=== PATIENT | female | born 1940 | race Caucasian/White ===

== ENCOUNTER 2021-08-29 16:07 | Emergency (ER) | payer MEDICARE, SELFPAY ==
--- NOTE | ~2021-08-29 | XR_ITS ---
XR hip RT min 2V 08/29/2021 16:42 Indication: Right hip pain after fall Procedure: 2 views right hip Comparison: No prior studies for comparison. Findings: There is a displaced right femoral neck fracture with superior subluxation. Normal minerali zation. No significant soft tissue abnormality. Impression: 1: Displaced right femoral neck fracture. Reviewed, dictated and finalized at location B. COMMUNICATOR Impression: 1: Displaced right femoral neck fracture.
[2021-08-29 16:15] VITALS: BP 100/45; PULSE 76; RESP 16; TEMP 36; O2SAT 100
--- NOTE | 2021-08-29 16:34 | ED.LOWEXIN ---
HPI - Extremity Injury (Lower) General Chief Complaint: Extremity Injury, Lower Stated Complaint: fall Time Seen by Provider: 08/29/21 16:30 Source: patient, family and RN notes reviewed Mode of arrival: ambulatory Limitations: no limitations History of Present Illness HPI Narrative: 81 year old female accompanied by daughter and spouse with complaints of patient falling at home yesterday afternoon stated she got lightheaded prior to fall but no syncopal episode. Patient is unable to bear weight on her right leg and is having discomfort to hip and also to right thigh region.Patient required assistance from staff to get her out of car which and daughter had put her in at home to bring here for x-ray. They stated that they called her orthopedic doctor at [facility] and have an appointment on . does not know medications she takes and poor historian. Patient does have some dementia and is forgetful, she is unable to give history either. Daughter able to assist with some past info but she is unsure of medications too. went home and got list of patient's medications. Patient was found to be in saturated depends and had been incontinent of stool, hygiene care given to patient and placed in hospital gown when she arrived at facility.. complaint: hip injury Onset (ago): day(s) (1) Type of Injury: blunt Place: home Related Data Home Medications Medication Instructions Recorded Confirmed atenolol 08/29/21 estradiol VAGINAL 08/29/21 flecainide 08/29/21 Allergies Allergy/AdvReac Type Severity Reaction Status Date / Time Sulfa (Sulfonamide Allergy Unknown Verified 08/29/21 16:15 Antibiotics) Review of Systems Review of Systems: CONSTITUTIONAL: Denies fever, chills, or sweats. EYES: Denies visual changes, redness, or discharge. ENT: Denies rhinorrhea, congestion, sore throat, or otalgia. CARDIOVASCULAR: Denies chest pain, palpitations, or edema. RESPIRATORY: Denies cough or dyspnea. GASTROINTESTINAL: Denies abdominal pain, nausea, vomiting, or diarrhea. GENITOURINARY: Denies dysuria or hematuria. SKIN: Denies rash or itching. MUSCULOSKELETAL: Denies back pain, positive for right hip pain, or myalgia. NEUROLOGIC: Denies headache, numbness, or weakness. PSYCHIATRIC: Denies anxiety or depression does have some dementia. 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 HEAD: Normocephalic, atraumatic. EYES: PERRLA and EOMI. ENT: Nares clear, no rhinorrhea or epistaxis. Mucous membranes moist. NECK: Supple. No lymphadenopathy CHEST: Clear to auscultation. No respiratory distress.[id number]% ON ROOM AIR HEART: Regular rate and rhythm. No murmur heard. Normal peripheral pulses. ABDOMEN: Soft, nontender, nondistended, normal active bowel sounds. EXTREMITIES: Normal range of motion. No edema. Unable to bear weight unable to move right hip without extreme pain radiating to right thigh,pedal pulse palpable to right foot. SKIN: Warm, dry, no rash. NEURO: No focal deficits. Alert and oriented x3. some forgetfulness Course Course Level of Care: Express Care Visit Vital Signs Vital signs: Vital Signs Temperature 36.0 C L 08/29/21 16:15 Pulse Rate 76 08/29/21 16:15 Respiratory Rate 16 08/29/21 16:15 Blood Pres
--- NOTE | 2021-08-29 17:02 | PC.NURSE ---
Patient hip is broken. Family wants patient to go to [facility]. Family is unaware of patients meds or history. Attempting to make arrangements for transfer. Patient remains in x-ray. Cleansed at this time as she is incontinent of stool and urine.
--- NOTE | 2021-08-29 17:19 | PC.NURSE ---
Continue to await bed assignment at [facility]. Daughter at bedside. Patient comfortable.
--- NOTE | 2021-08-29 17:42 | PC.NURSE ---
Continues to rest easily. Daughter at bedside. Waiting for [facility] to call back.
--- NOTE | 2021-08-29 17:48 | PC.NURSE ---
Patients orthopedic accepted patient for transfer. Now awaiting transfer access to assign a bed. Family aware.
[2021-08-29 18:41] VITALS: BP 102/50; PULSE 92; RESP 16; O2SAT 100
== END 2021-08-29 18:46 | disposition short-term general hospital (02) ==
PROVIDERS: Emergency Provider Registered Nurse
DX: S72.001A Fracture of unspecified part of neck of right femur, initial encounter for closed fracture (principal); W19.XXXA Unspecified fall, initial encounter; I48.91 Unspecified atrial fibrillation; Z96.652 Presence of left artificial knee joint
CPT/HCPCS: 73502; 99215; G0463

== ENCOUNTER 2023-03-04 18:36 | Emergency (ER) | payer MEDICARE, SELFPAY ==
[2023-03-04 18:42] VITALS: BP 139/57; PULSE 59; RESP 20; TEMP 36.6; O2SAT 97
--- NOTE | 2023-03-04 18:44 | ED.FEMALEGU ---
HPI - Female Genitourinary General Chief complaint: Urogenital-Female Stated complaint: Urinary Problem Time Seen by Provider: 03/04/23 18:45 Source: patient Mode of arrival: ambulatory Limitations: no limitations History of Present Illness HPI Narrative: Geena is an 82-year-old female patient presenting to the clinic today with complaints of possible urinary tract infection. Daughter reports she has been having urinary frequency and low urine output. Also fell yesterday and has been more confused. Related Data Home Medications Medication Instructions Recorded Confirmed atenolol 50 mg tablet 50 mg PO DAILY 08/29/21 03/04/23 ascorbic acid (vitamin C) 500 mg 03/04/23 tablet aspirin 81 mg tablet 81 mg PO DAILY 03/04/23 03/04/23 d-mannose 500 mg capsule mg PO 03/04/23 ergocalciferol (vitamin D2) 1,250 1,250 mcg WEEKLY 03/04/23 03/04/23 mcg (50,000 unit) capsule magnesium 100 mg capsule mg 03/04/23 03/04/23 metoprolol tartrate 50 mg tablet 50 mg PO DAILY 03/04/23 03/04/23 propafenone 150 mg tablet 150 mg PO DAILY 03/04/23 03/04/23 Allergies Allergy/AdvReac Type Severity Reaction Status Date / Time Sulfa (Sulfonamide Allergy Unknown Verified 09/21/21 11:34 Antibiotics) Review of Systems Review of Systems: Pertinent positives per HPI. Patient denies any fever, chills, rash, headache, visual changes, dizziness, cough, shortness of breath, chest pain, palpitations, nausea, vomiting, diarrhea, constipation, or any abdominal pain. 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 There is no relevant family history pertinent to the patient complaint. Exam Narrative: General: Well-developed, well nourished, in no apparent distress. Head: Normocephalic, atraumatic. Cardio: Regular rate and rhythm, s1 and s2 normal, no murmur appreciated. Resp: Clear to auscultation bilaterally, no rhonchi, rales, wheezing or rubs. Abdomen: Soft, pliable, bowel sounds present in all quadrants, non-tender to palpation, no organomegly, no CVAT tenderness. Course Course Emergency Course: Portions of this record may have been created with voice recognition software. Level of Care: Express Care Visit Vital Signs Vital signs: Vital signs reviewed MDM - Female Genitourinary MDM Narrative Medical decision making narrative: At the time of visit patient is resting in her wheelchair. UA was performed and shows 3+ leukocytes, 2+ blood, and 1+ protein. Will place the patient on Augmentin as ciprofloxacin will interact with 1 of the other medication she is taking possibly causing QT prolongation. Supportive measures were discussed with the patient the daughter and they voiced understanding of discharge instructions and agreed to the treatment plan. Differential Diagnosis Differential diagnosis: Likely urinary tract infection, cystitis and other (Pyelonephritis) Discharge Plan Discharge Clinical Impression: Urinary tract infection Qualifiers: Urinary tract infection type: acute cystitis Hematuria presence: with hematuria Qualified Code(s): N30.01 - Acute cystitis with hematuria Patient Disposition: Home, Self-Care Condition: Stable Instructions: Antibiotic Form, Urinary Tract Infection in Older Adults (ED) Additional Instructions: UA positive for 3+ bacteria,
[2023-03-04 18:56] VITALS: BP 139/57; PULSE 59; RESP 20; TEMP 36.6; O2SAT 97
== END 2023-03-04 19:17 | disposition home or self-care (01) ==
PROVIDERS: Emergency Provider Nurse Practitioner Family
DX: N30.01 Acute cystitis with hematuria (principal); I48.91 Unspecified atrial fibrillation; Z96.651 Presence of right artificial knee joint; Z90.710 Acquired absence of both cervix and uterus; Z79.82 Long term (current) use of aspirin
CPT/HCPCS: 81003; 87086; 87088; 99213; G0463